=== PATIENT | female | born 1930 | race Caucasian/White ===

== ENCOUNTER 2018-11-11 02:41 | Emergency (ER) | payer MEDICARE, OTHER ==
[~2018-11-11] VITALS: Ht 152.4 cm; Wt 52.7 kg
[~2018-11-11 02:41] MED LIST: ALEVE 220MG220 MG PO; CARDIZEM CD300 MG PO; HCTZ 25MG25 MG PO; LORTAB 5/500 501 TAB PO
[2018-11-11 02:44] VITALS: TEMP 97.3
[2018-11-11] MEDS ORDERED: XANAX .25M0.25 MG/TA PO (02:52)
[2018-11-11] MEDS ORDERED: ASPIRIN 32325 MG/TAB PO (02:52)
[2018-11-11] MEDS ORDERED: CARTIA XT300 MG PO (02:53)
[2018-11-11 03:21] LABS: BASO % 0.7 % (0.0-2.0); EOS # 0.6 (0.0-0.7); EOS % 11.1 % (0-4.0); GRAN # 3.1 (1.4-6.5); HEMATOCRIT 41.2 % (37.0-47.0); HEMOGLOBIN 14.5 g/dl (12.5-16.0); LYMPH # 1.2 (1.2-3.4); LYMPH % 22.5 % (20.0-51.0); MEAN CELL VOLUME 95 fl (80.0-100.0); MEAN CORPUSCULAR HEMOGLOBIN 34 pg (27.0-31.0); MEAN CORPUSCULAR HGB CONC 35 g/dl (33.0-37.0); MEAN PLATELET VOLUME 9.4 fl (7.4-10.4); MONO # 0.5 (0.1-0.6); MONO % 8.3 % (1.7-9.3); PLATELET COUNT 487 K/mm3 (130-400); RED BLOOD COUNT 4.33 M/mm3 (4.10-5.30); REDCELL DISTRIBUTION WIDTH-CV 13.4 % (11.5-14.5)
[2018-11-11 03:29] LABS: INR 0.9 (0.8-3.0); PROTHROMBIN TIME 10.5 SECONDS (9.7-12.8)
[2018-11-11 03:43] LABS: ALANINE AMINOTRANSFERASE 18 U/L (9-52); ALBUMIN 4.2 gm/dL (3.5-5.0); ALKALINE PHOSPHATASE 52 U/L (50-136); ANION GAP 8 mmol/L (7-16); AST,SGOT 29 U/L (15-37); BILIRUBIN,TOTAL 0.7 mg/dL (0.0-1.0); BLOOD UREA NITROGEN 11 mg/dL (7-17); CALCIUM 10.5 mg/dL (8.4-10.2); CARBON DIOXIDE 31 mmol/L (22-30); CHLORIDE 96 mmol/L (98-107); CREATININE, serum 0.41 mg/dL (0.52-1.25); GLUCOSE 107 mg/dL (74-106); POTASSIUM 3.5 mmol/L (3.4-5.0); SODIUM 135 mmol/L (137-145); TOTAL PROTEIN 7.1 gm/dL (6.4-8.2)
[2018-11-11 03:55] LABS: TROPONIN-I < 0.012 ng/mL (0.000-0.034)
[2018-11-11 05:57] LABS: COLLECTION METHOD CLEAN CATCH
[2018-11-11 06:02] LABS: PH 7 (5-8); SQUAMOUS EPITHELIAL 0-2 /hpf; URINE APPEARANCE Clear; URINE BACTERIA None Seen /hpf; URINE BILIRUBIN Negative (NEGATIVE); URINE BLOOD Negative (NEGATIVE); URINE COLOR Yellow; URINE GLUCOSE Negative (NEGATIVE); URINE KETONE Negative (NEGATIVE); URINE LEUKOCYTE ESTERASE Negative (NEGATIVE); URINE NITRATE Negative (NEGATIVE); URINE PROTEIN(semi-quant) Negative (NEGATIVE); URINE RBC 0-2 /hpf; URINE UROBILINOGEN Negative (NEGATIVE)
[2018-11-11 10:30] VITALS: BP 106/67; PULSE 103
== END 2018-11-11 10:30 | disposition home or self-care (01) ==
LOC: COL.ER 02:41
PROVIDERS: Emergency Medicine
DX: R42 Dizziness and giddiness (principal); R09.02 Hypoxemia; I10 Essential (primary) hypertension; F41.9 Anxiety disorder, unspecified; Z79.82 Long term (current) use of aspirin
CPT/HCPCS: Q9967